=== PATIENT | male | born 1940 | race Caucasian/White ===

== ENCOUNTER → 2018-09-25 | Outpatient (CLI) | payer MEDICARE ==
[~2018-09-25] MED LIST: LISINOPRIL10 MG PO; METOPROLOL TART50 MG PO
--- NOTE | 2018-09-25 14:45 | Diagnostic Imaging Report ---
EXAM: Renal Ultrasound INDICATION: ^[id number] ^[id number] ^CYST OF KIDNEY COMPARISON: Renal ultrasound 11/11/2007 TECHNIQUE: Transverse and longitudinal images of the kidneys and bladder were obtained. FINDINGS: Right Kidney: Size: 9.8 cm, right renal cortex 1.6 cm. Appearance: Mildly increased echogenicity. Collecting system: No hydronephrosis Stones: None Cyst/Mass: 0.7 x 0.6 cm hyperechoic nonshadowing cortical focus in the mid to lower aspect Left Kidney: Size: 11.3 cm, left renal cortex 1.8 cm. Appearance: Mildly increased echogenicity. Collecting system: No hydronephrosis Stones: None Cyst/Mass: 5.2 x 4.9 x 4.4 cm cystic, anechoic mostly exophytic lesion in the inferior pole (previously measured 11.9 x 9.1 x 10.7 cm). 2.1 x 1.8 x 1.7 cystic, anechoic lesion in the medial aspect. 2.4 x 1.8 x 1.8 cm cystic, anechoic lesion in the lateral aspect. Bladder: No focal lesions. No wall thickening. Prevoid bladder volume 107.9 mL. Post void bladder volume: None IMPRESSION: 1. Normal bilateral renal size. Mildly increased renal cortical echogenicity, suggesting mild medical renal disease. 2. Interval decrease in size of most exophytic simple cyst in the left inferior pole. Additional left simple cysts, as described. 3. 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 Signed by: Dr. Christophe Esquivel M.D. on 09/25/2018 2:42 PM
== END ==
LOC: US 10:54
PROVIDERS: ATTEND Urology
DX: N28.1 Cyst of kidney, acquired (principal)
CPT/HCPCS: 76770